=== PATIENT | male | born 1980 | race American Indian/Alaskan Native ===

== ENCOUNTER 2019-08-10 20:37 | Emergency (ER) | payer OTHER ==
[~2019-08-10] VITALS: Ht 177.8 cm; Wt 75.8 kg
[~2019-08-10 20:37] MED LIST: CALCIUM 500 +1 EAC1 PO; CYCLOBENZAPRINE5 MG PO; FISH OIL500 MG PO; IBUPROFEN600 MG PO; LORAZEPAM1 MG PO
[2019-08-10] MEDS ORDERED: REGLAN10 MG PO (23:16)
== END 2019-08-10 23:29 | disposition home or self-care (01) ==
LOC: ED 20:37
DX: K29.00 Acute gastritis without bleeding (principal); Z72.89 Other problems related to lifestyle; R06.6 Hiccough; F17.200 Nicotine dependence, unspecified, uncomplicated
CPT/HCPCS: 80053; 81001; 83690; 83735; 85025; 96361; 96374; 96375; 99284-25; G0480; J1200; J2405; J2765; J7030

== ENCOUNTER 2020-03-29 08:37 | Inpatient (IN) | payer OTHER ==
[~2020-03-29] VITALS: Ht 177.8 cm; Wt 85.3 kg
--- OUTSIDE RECORDS SUMMARY | ~2020-03-29 | XMS | Encounter Summary ---
Demographics + + + | Address | [address] | | | [place] [address] | + + + | Home Phone | | + + + | Preferred Language | Unknown | + + + | Marital Status | Single | + + + | Latter-Day Affiliation | NRP | + + + | Race | White | + + + | Ethnic Group | or | + + + Author + + + | Author | [facility] | + + + | Organization | [facility] | + + + | Address | Unknown | + + + | Phone | Unavailable | + + + Support + + +---------+ + | Name | Relationship | Address | Phone | + + +---------+ + | Montserrat Tavaresr | ECON | Unknown | | + + +---------+ + Care Team Providers + +------+ + | Care Roll Plugger Name | Role | Phone | + +------+ + | No Pcp Per Patient | PCP | Unavailable | + +------+ + Encounter Details +--------+ + + + + | Date | Type | Department | Care Team | Description | +--------+ + + + + | 06/08/ | Procedure | Diagnostic Imaging | | | | 2019 | Pass | Services at [facility] | | | | | | [address] | | | | | | Micaela Willis [facility] | | | | | | [facility], [address] [place] [address] | | | | | | [place], [place] | | | | | | [address] | | | | | | [phone] | | | +--------+ + + + + Social History + +-------+ +--------+------+ | Tobacco Use | Types | Packs/Day | Years | Date | | | | | Used | | + +-------+ +--------+------+ | Never Assessed | | | | | + +-------+ +--------+------+ + + + | Sex Assigned at | Date Recorded | | | | + + + | Not on file | | + + + + + + + | Job Start Date | Occupation | Industry | + + + + | Not on file | Not on file | Not on file | + + + + + + + + | Travel History | Travel Start | Travel End | + + + + + + | No recent travel history available. | + + documented as of this encounter Plan of Treatment Not on filedocumented as of this encounter Visit Diagnoses Not on filedocumented in this encounter"
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
--- OUTSIDE RECORDS SUMMARY | ~2020-03-29 | XMS | Encounter Summary ---
Demographics + + + | Address | [address] | | | [place] [address] | + + + | Home Phone | | + + + | Preferred Language | Unknown | + + + | Marital Status | Single | + + + | Anglican Affiliation | NRP | + + + | Race | White | + + + | Ethnic Group | or | + + + Author + + + | Author | [facility] | + + + | Organization | [facility] | + + + | Address | Unknown | + + + | Phone | Unavailable | + + + Support + + +---------+ + | Name | Relationship | Address | Phone | + + +---------+ + | Montserrat Tavaresr | ECON | Unknown | | + + +---------+ + Care Team Providers + +------+ + | Care Hoop Punch And Coiler Operator Name | Role | Phone | + +------+ + | No Pcp Per Patient | PCP | Unavailable | + +------+ + Encounter Details +--------+--------+ + + + | Date | Type | Department | Care Team | Description | +--------+--------+ + + + | 06/08/ | Intake | Transfer Center | | N/A | | 2019 | | [address] | | | | | | [place], | | | | | | [place] [address] | | | +--------+--------+ + + + Social History + +-------+ [...]
--- OUTSIDE RECORDS SUMMARY | ~2020-03-29 | XMS | Encounter Summary ---
Demographics + + + | Address | [address] | | | [place] [address] | + + + | Home Phone | | + + + | Preferred Language | Unknown | + + + | Marital Status | Single | + + + | Synagogue Affiliation | NRP | + + + | Race | White | + + + | Ethnic Group | or | + + + Author + + + | Organization | Unknown | + + + | Address | Unknown | + + + | Phone | Unavailable | + + + Support + + +---------+ + | Name | Relationship | Address | Phone | + + +---------+ + | Montserrat Reynaga | ECON | Unknown | | + + +---------+ + Care Team Providers + +------+ + | Care Bodywork Therapist Name | Role | Phone | + +------+ + PCP | Unavailable | + +------+ + Encounter Details +--------+--------+ + + + | Date | Type | Department | Care Team | Description | +--------+--------+ + + + | 06/08/ | Travel | | | | | 2019 | | | | | +--------+--------+ + [...]
--- OUTSIDE RECORDS SUMMARY | ~2020-03-29 | XMS | Encounter Summary ---
Demographics + + + | Address | [address] | | | [place] [address] | + + + | Home Phone | | + + + | Preferred Language | Unknown | + + + | Marital Status | Single | + + + | Shinto Affiliation | NRP | + + + | Race | White | + + + | Ethnic Group | or | + + + Author + + + | Author | [facility] | + + + | Organization | [facility] | + + + | Address | Unknown | + + + | Phone | Unavailable | + + + Support + + +---------+ + | Name | Relationship | Address | Phone | + + +---------+ + | Montserrat Tavaresr | ECON | Unknown | | + + +---------+ + Care Team Providers + +------+ + | Care Field Sales Engineer Name | Role | Phone | + +------+ + | No Pcp Per Patient | PCP | Unavailable | + +------+ + Encounter Details +--------+ + + + + | Date | Type | Department | Care Team | Description | +--------+ + + + + | 06/08/ | Procedure | Diagnostic Imaging | | | | 2019 | Pass | Services at [facility] | | | | | | [address] | | | | | | [place] [facility] | | | | | | [facility], [address] [place] [address] | | | | | | [place], [place] | | | | | | [address] | | | | | | [phone] | | | +--------+ + + + [...]
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
--- OUTSIDE RECORDS SUMMARY | ~2020-03-29 | XMS | Encounter Summary ---
Demographics + + + | Address | [address] | | | [place] [address] | + + + | Home Phone | | + + + | Preferred Language | Unknown | + + + | Marital Status | Single | + + + | Temple Affiliation | NRP | + + + | Race | White | + + + | Ethnic Group | or | + + + Author + + + | Author | [facility] | + + + | Organization | [facility] | + + + | Address | Unknown | + + + | Phone | Unavailable | + + + Support + + +---------+ + | Name | Relationship | Address | Phone | + + +---------+ + | Montserrat Tavaresr | ECON | Unknown | | + + +---------+ + Care Team Providers + +------+ + | Care Spray Gun Striper Name | Role | Phone | + +------+ + | No Pcp Per Patient | PCP | Unavailable | + +------+ + Encounter Details +--------+ + + + + | Date | Type | Department | Care Team | Description | +--------+ + + + + | 06/08/ | Procedure | Diagnostic Imaging | | | | 2019 | Pass | Services at [facility] | | | | | | [address] | | | | | | Micaela Willis [facility] | | | | | | [facility], [address] [place] [address] | | | | | | [place], [place] | | | | | | [address] | | | | | | [phone] | | | +--------+ + + + [...]
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
--- OUTSIDE RECORDS SUMMARY | ~2020-03-29 | XMS | Encounter Summary ---
Demographics + + + | Address | [address] | | | [place] [address] | + + + | Home Phone | | + + + | Preferred Language | Unknown | + + + | Marital Status | Single | + + + | Gnosticism Affiliation | NRP | + + + [...] Team Providers + +------+ + | Care Deputy Sheriff Generalist Name | Role | Phone | + [...]
--- OUTSIDE RECORDS SUMMARY | ~2020-03-29 | XMS | Clinical Summary ---
Demographics + + + | Address | [address] | | | [place] [address] | + + + | Home Phone [...] Team Providers + +------+ + | [employer] Solutions Sales Consultant Name | Role | Phone | + +------+ + | No Pcp Per Patient | PCP | Unavailable | + +------+ + Source Comments JAX is fully live on both [facility] Ambulatory and [facility] InPatient.[facility] Allergies No Known Allergies Medications Not on [...] | OHP | xxxxxxxx | 05/05/20 | [phone] | [address] | [address] | | | PLUS | | 19-Pre | 6 | [address] | id | | | OPEN | | sent | | [place], [place] | | | | CARD | | | | [address] | | + +--------+ +--------+ + +--------+ [...] [address] | | | 9 (Home) | [address] | + +--------+ +--------+ + + Advance [...]
--- OUTSIDE RECORDS SUMMARY | ~2020-03-29 | XMS | Encounter Summary ---
Demographics + + + | Address | [address] | | | [place] [address] | + + + | Home Phone | | + + + | Preferred Language | Unknown | + + + | Marital Status | Single | + + + | Episcopalian Affiliation | NRP | + + + | Race | White | + + + | Ethnic Group | or | + + + Author + + + | Author | [facility] | + + + | Organization | [facility] | + + + | Address | Unknown | + + + | Phone | Unavailable | + + + Support + + +---------+ + | Name | Relationship | Address | Phone | + + +---------+ + | Montserrat Tavaresr | ECON | Unknown | | + + +---------+ + Care Team Providers + +------+ + | Care Tube Carrier Name | Role | Phone | + +------+ + | No Pcp Per Patient | PCP | Unavailable | + +------+ + Encounter Details +--------+ + + + + | Date | Type | Department | Care Team | Description | +--------+ + + + + | 06/08/ | Procedure | Diagnostic Imaging | | | | 2019 | Pass | Services at [facility] | | | | | | [address] | | | | | | Micaela Willis [facility] | | | | | | [facility], [address] [place] [address] | | | | | | [place], [place] | | | | | | [address] | | | | | | [phone] | | | +--------+ + + + [...]
--- OUTSIDE RECORDS SUMMARY | ~2020-03-29 | XMS | Encounter Summary ---
Demographics + + + | Address | [address] | | | [place] [address] | + + + | Home Phone | | + + + | Preferred Language | Unknown | + + + | Marital Status | Single | + + + | Latter-Day Affiliation | NRP | + + + | Race | White | + + + | Ethnic Group | or | + + + Author + + + | Author | [facility] | + + + | Organization | [facility] | + + + | Address | Unknown | + + + | Phone | Unavailable | + + + Support + + +---------+ + | Name | Relationship | Address | Phone | + + +---------+ + | Montserrat Tavaresr | ECON | Unknown | | + + +---------+ + Care Team Providers + +------+ + | Care Fruit Thinner Machine Operator Name | Role | Phone | [...] | | | | | Micaela Willis [place], | | | | | | [place] [address] | | | +--------+--------+ + + + [...]
--- OUTSIDE RECORDS SUMMARY | ~2020-03-29 | XMS | Encounter Summary ---
Demographics + + + | Address | [address] | | | [place] [address] | + + + | Home Phone | | + + + | Preferred Language | Unknown | + + + | Marital Status | Single | + + + | Evangelical Affiliation | NRP | + + + | Race | White | + + + | Ethnic Group | or | + + + Author + + + | Author | [facility] | + + + | Organization | [facility] | + + + | Address | Unknown | + + + | Phone | Unavailable | + + + Support + + +---------+ + | Name | Relationship | Address | Phone | + + +---------+ + | Montserrat Tavaresr | ECON | Unknown | | + + +---------+ + Care Team Providers + +------+ + | Care Proof Tester Name | Role | Phone | + [...] | | | | | Micaela Willis [place], | | | | | | [place] [address] | | | +--------+--------+ + + + [...]
--- OUTSIDE RECORDS SUMMARY | ~2020-03-29 | XMS | Clinical Summary ---
Demographics + + + | Address | [address] | | | [place] [address] | + + + | Home Phone | | + + + | Preferred Language | Unknown | + + + | Marital Status | Single | + + + | Anabaptism Affiliation | NRP | + + + [...] Team Providers + +------+ + | Care Treating Machine Operator Name | Role | Phone | + +------+ + | No Pcp Per Patient | PCP | Unavailable | + +------+ + Source Comments JAX is fully live on both [facility] and [facility] InPatient.[facility] Allergies No Known Allergies Medications Not on [...] | OHP | xxxxxxxx | 05/05/20 | [phone] | [address] | [address] | | | PLUS | | 19-Pre | 6 | [phone] | id | | | OPEN | | sent | | [place], [place] | | | | CARD | | | | [phone] | | + +--------+ +--------+ + +--------+ [...] | [address] | | | al/Ttii | | 1981 | [phone] | [place] | | | [place]ale | | | [address] (Home) | [address] | + +--------+ +--------+ + + Advance [...]
--- OUTSIDE RECORDS SUMMARY | ~2020-03-29 | XMS | Encounter Summary ---
Demographics + + + | Address | [address] | | | [place] [address] | + + + | Home Phone | | + + + | Preferred Language | Unknown | + + + | Marital Status | Single | + + + | Cheondoism Affiliation | NRP | + + + | Race | White | + + + | Ethnic Group | or | + + + Author + + + | Author | [facility] | + + + | Organization | [facility] | + + + | Address | Unknown | + + + | Phone | Unavailable | + + + Support + + +---------+ + | Name | Relationship | Address | Phone | + + +---------+ + | Montserrat Tavaresr | ECON | Unknown | | + + +---------+ + Care Team Providers + +------+ + | Care Healthcare Technician Name | Role | Phone | + +------+ + | No Pcp Per Patient | PCP | Unavailable | + +------+ + Encounter Details +--------+ + + + + | Date | Type | Department | Care Team | Description | +--------+ + + + + | 06/08/ | Procedure | Diagnostic Imaging | | | | 2019 | Pass | Services at [facility] | | | | | | [address] | | | | | | Micaela Willis [facility] | | | | | | [facility], [address] [place] [address] | | | | | | [place], [place] | | | | | | [address] | | | | | | [phone] | | | +--------+ + + + [...]
--- OUTSIDE RECORDS SUMMARY | ~2020-03-29 | XMS | Encounter Summary ---
Demographics + + + | Address | [address] | | | [place] [address] | + + + | Home Phone [...] Team Providers + +------+ + | Care Trimming Assembler Name | Role | Phone | + [...]
--- OUTSIDE RECORDS SUMMARY | ~2020-03-29 | XMS | Encounter Summary ---
Demographics + + + | Address | [address] | | | [place] [address] | + + + | Home Phone | | + + + | Preferred Language | Unknown | + + + | Marital Status | Single | + + + | Latter Day Affiliation | NRP | + + + | Race | White | + + + | Ethnic Group | or | + + + Author + + + | Author | [facility] | + + + | Organization | [facility] | + + + | Address | Unknown | + + + | Phone | Unavailable | + + + Support + + +---------+ + | Name | Relationship | Address | Phone | + + +---------+ + | Montserrat Tavaresr | ECON | Unknown | | + + +---------+ + Care Team Providers + +------+ + | Care Technical Marketing Consultant Name | Role | Phone | [...] | 2019 | Pass | Services at [facility] | | | | | | [address] | | | | | | Micaela Willis [facility] | | | | | | [facility], [address] [place] [address] | | | | | | [place], [place] | | | | | | [address] | | | | | | [phone] | | | +--------+ + + + [...]
[~2020-03-29 08:37] MED LIST changes: +REGLAN10 MG PO
[2020-03-29] MEDS ORDERED: CLARITIN10 M2 PO (08:44)
--- NOTE | 2020-03-29 11:59 | NUR ---
PATIENT ADMITTED TO ROOM 127 AROUND 1110 FROM ER FOR ETOH W/D AND SEIZURES. PT ABLE TO STAND AND VOID, AND THEM MOVE ONTO CCU BED. PATIENT CIWA AT 4 AT THIS TIME BUT PATIENT DID HAVE 3 MG IV ATIVAN IN ER. PATIENT'S HEART RATE 100-120s. PATIENT STATES HE DRINKS HALF OF A FIFTH OF ALCOHOL A DAY, HE SPLITS IT WITH HIS MOTHER. PATIENT STATES HIS LAST DRINK WAS YESTERDAY. PT HAS VISIBLE BLOOD ON HIS LIPS AND A GASH IN HIS LEFT SIDE OF TONGUE FROM BITING IT LIKELY DURING HIS SEIZURE. PATIENT DENIES PAST HISTORY OF SEIZURES. PATIENT'S MOTHER CALLS CCU AND TALKS WITH THIS RN AND PROVIDES SOME HISTORY OF LAST COUPLE DAYS. HIS MOTHER STATES HE DID NOT HAVE ANY ALCOHOL YESTERDAY IT WAS A SUNDAY, AND SHE NOTES THAT HE MOSTLY SLEPT ALL DAY. SHE THEN STATES THAT HE STARTED VOMITING THIS AM, AND VOMITED A LOT BEFORE SHE HEARD THE LOUD NOISE AND FOUND HIM ON BATHROOM FLOOR SEIZING. PATIENT ORIENTED TO ROOM AND CALL LIGHT AND ASKED TO USE CALL LIGHT BEFORE GETTING OUT OF BED. PT VERBALIZES UNDERSTANDING BUT WILL STILL BE MONITORED CLOSELY.
--- NOTE | 2020-03-29 12:00 | EKG ---
[facility] [address] [facility] [place] [address] Signed Sinus tachycardia Possible Left atrial enlargement Rightward axis Borderline ECG Confirmed by GREG DSOUZA MD ([id number]) on 03/29/2020 12:00:23 PM Electronically Signed By: GREG DSOUZA MD 03/29/20 1200 PATIENT NAME: LETTY CHILDERS Electrocardiogram DATE OF : 76 PHYSICIAN: GREG DSOUZA MD REPORT #: [id number] REPORT IS CONFIDENTIAL AND NOT TO BE RELEASED WITHOUT AUTHORIZATION
--- NOTE | 2020-03-29 12:11 | NUR ---
IVF STARTED. PATIENT SLEEPING AT THIS TIME. RR 15, UNLABORED. SP02 93% ON ROOM AIR. BED ALARM ON FOR SAFETY.
--- NOTE | 2020-03-29 15:22 | NUR ---
PT AWAKE WATCHING TV IN BED. SCOOTING UP CAUSED BED ALARM TO GO OFF. PT AWARE OF HOW TO GET AHOLD OF NURSE. ICE WATER FOR MOUTH SWAB PROVIDED.
--- NOTE | 2020-03-29 17:30 | NUR ---
PATIENT SITTING UP IN BED EATING A CLEAR LIQUID TRAY AT THIS TIME. HR IN THE 110-130s WITH ACTIVITY OF EATING. CHECKED ON PATIENT AND HE STATES, "I'M JUST TRYING TO EAT, BUT IT'S JUST TAKING IT OUT OF ME." ENCOURAGED PATIENT TO TAKE IT SLOW ON EATING. PT STILL SOMEWHAT VISIBLY TREMULOUS WITH ARMS EXTENDED BUT DENIES FEELING ANXIOUS. PT HAS BEEN APPROPRIATELY USING CALL LIGHT AND HAS NOT SHOWN AGITATION. WILL CONTINUE TO MONITOR. NEXT SCHEDULED DOSE OF ATIVAN AT 1800 AND PATIENT UPDATED ON THIS.
--- NOTE | 2020-03-29 20:00 | NUR ---
PT IS SLEEPING AT THIS TIME. NO NEW CONCERNS NOTED.
--- NOTE | 2020-03-29 21:00 | NUR ---
PT IS AAOX4, CIWA WAS A 6 AT 2030. HR IS STILL ELEVATED IN THE 130'S WHEN PT GETS OUT OF BED, OTERWISE V/S ARE WDL. PT DID HAVE A TEMP OF 99.1 F. URINE OUTPUT SO FAR IS ADEQUATE, ALL LOBES ARE CLEAR, PT DENIES PAIN, NO PERIPHERAL EDEMA NOTED, ABD SOUNDS PRESENT, ABD IS NON-TENDER. SECOND IV SITE PLACED. WILL CONTINUE TO MONITOR.
--- NOTE | 2020-03-29 21:48 | NUR ---
PT AT THIS TIME IS SLEEPING. NO NEW CONCERNS NOTED
--- NOTE | 2020-03-29 22:18 | NUR ---
PT SET OFF BED ALARM. STOOD AT SIDE OF BED TO VOID (500ML) AND THEN RETURNED TO BED. WITH ACTIVITY, HR INCREASED TO 135 AND NOW THAT PT IS BACK IN BED HR 105. DENIES FURTHER REQUESTS, BED ALARM RE-SET FOR SAFETY.
--- NOTE | 2020-03-29 23:22 | NUR ---
PT IS SLEEPING AT THIS TIME, NO NEW CONCERNS NOTED.
--- NOTE | 2020-03-29 23:55 | NUR ---
CIWA AT THIS TIME IS A 1. PT IS AAOX4, SECOND ASSESSMENT WAS OVERALL UNCHANGED FROM THE FIRST. HR NOW <100 WHEN PT IS STILL IN BED. TEMP STILL 99.1 F, OTHER V/S ARE WDL. NO NEW CONCERNS NOTED AT THIS TIME.
--- NOTE | 2020-03-30 01:18 | NUR ---
PT IS BACK TO BED AFTER SCHEDULED ATIVAN ADMINISTRATION. NO NEW CONCERNS NOTED. V/S WDL, PT AAOX4.
--- NOTE | 2020-03-30 03:05 | NUR ---
PT AT THIS TIME IS SLEEPING. PT IS LAYING ON HER SIDE, HENCE BP A BIT LOW. DRIP IS STILL OFF. HR IN THE MID 60'S.
--- NOTE | 2020-03-30 03:07 | NUR ---
ASSISTED PT WITH URINATION A BIT AGO. PT IS BACK IN BED AND SLEEPIN AT THIS TIME. BP IS A BIT ELEVATED. OTHER V/S ARE WDL SO FAR.
--- NOTE | 2020-03-30 04:30 | NUR ---
CIWA AT THIS TIME IS A 1. PT HAS BEEN SLEEPING. LOBES ARE CLEAR, PT IS AAOX4, NO NEW PROBLEMS WERE NOTED WITH THRID ASSESSMENT. WHILE PT IS SLEEPING, HIS HR USUALLY IS <100, WHILE STANDING, HR CAN GO UP TO 140'S. TEMP NOW 99.3 F. OTHER V/S ARE WDL OVERALL. WILL CONTINUE TO MONITOR.
--- NOTE | 2020-03-30 06:13 | NUR ---
SO FAR PT IS DOING WELL WITH SCHEDULED ATIVAN ONLY. HIGHEST CIWA FOR THIS SHIFT WAS A 6. PT HAS HAD A SLIGHT TEMP IN THE 99+ F REGION. BP'S HAVE BEEN ELEVATED THIS SHIFT. HR IS ,100 WHEN PT IS STILL IN BED. WHILE STANDING HR STILL UP TO 140'S. URINE OUTPUT IS ADEQUATE, PT IS AAOX4 AND VERY COOPERATIVE. LOBES ARE CLEAR, ABD SOUNDS PRESENT, NO PERIPHERAL EDEMA NOTED.
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
--- NOTE | 2020-03-30 09:45 | NUR ---
IN PT ROOM, BED ALARM SOUNDING, CASE MANAGEMENT IN ROOM WITH PATIENT. PATIENT STANDING AT BEDSIDE AND APPEARS ANXIOUS. PATIENT STATING, "WHERE ARE MY CLOTHES..." PATIENT PUT HIS SHORTS ON AND STATED THAT HE DID NOT WANT TO BE IN BED ANY LONGER, PATIENT WALKED TO CHAIR AND WAS UNSTEADY ON HIS FEET. THE CONVERSATION WITH CASE MANAGEMENT APPEARS TO HAVE MADE HIM MORE ANXIOUS. PATIENT STATES HE "DOES NOT WANT TO STOP DRINKING BECAUSE HE HAS TOO MUCH GOING ON AT HOME" BUT HE DOES STATE THAT HE NEEDS TO "CUT BACK" MD NOTIFIED OF PATIENT DESIRES TO LEAVE. PATIENT EDUCATED ON NEED TO REDUCE ALCOHOL CONSUMPTION. PATIENT NOW SITTING IN THE CHAIR WITH SHORTS ON. WILL CONTINUE TO MONITOR.
[2020-03-30] MEDS ORDERED: GABAPENTIN300 MG PO (10:18)
--- NOTE | 2020-03-30 10:45 | NUR ---
PT DISCHARGE TEACHING COMPLETE. PT REMOVED HIS OWN IV CATHETERS AFTER BEING TOLD BY TWO RNS THAT IT WOULD BE DONE BY STAFF. PT BLED ONTO FLOOR AND PERSON. PATIENT WAS CLEANED UP AND IV ENTRANCE SITES WERE ASSESSED. BOTH THE RIGHT FOREARM AND LEFT ANTICUBITAL HAD BLOOD AROUND THE SITES. SITES CLEANED AND DRESSED WITH COBAN. CATHETERS VIEWED IN TRASHCAN TO BE INTACT. PATIENT CHANGED INTO CLOTHES BROUGHT BY HIS MOTHER AND WAS GIVEN POTASSIUM PER EMAR. PATIENT WAS TRANSPORTED FROM ROOM TO THE MOTHERS VEHICLE VIA WHEELCHAIR AND ASSISTED INTO THE VEHICLE AND DECLINED ANY FURTHER NEEDS OR QUESTIONS.
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
== END 2020-03-30 10:45 | disposition home or self-care (01) | DRG 897 ==
LOC: ED 08:37 → CCU 10:33
PROVIDERS: ADMIT Internal Medicine
DX: F10.239 Alcohol dependence with withdrawal, unspecified (principal); E87.2 Acidosis; F10.231 Alcohol dependence with withdrawal delirium; R56.9 Unspecified convulsions; F17.210 Nicotine dependence, cigarettes, uncomplicated; E83.42 Hypomagnesemia; E87.6 Hypokalemia; K70.10 Alcoholic hepatitis without ascites; Z79.899 Other long term (current) drug therapy; Z20.828 Contact with and (suspected) exposure to other viral communicable diseases
CPT/HCPCS: 36415; 71045; 80048; 80053; 81001; 83690; 83735; 85025; 85610; 93005; 93010; 96361; 96365; 96375; 96376; 99285-25; C9113; G0480; J1650; J2060; J3411; J3475; J7030; J7121; U0002

== ENCOUNTER 2023-12-14 06:15 | Day surgery (SDC) | payer OTHER ==
[2023-12-11 15:24] VITALS: BP 132/92
[~2023-12-14] VITALS: Ht 177.8 cm; Wt 82.3 kg
[~2023-12-14 06:15] MED LIST changes: +ADVIL200 M1 PO; +ATIVAN2 MG PO; +CLARITIN10 M2 PO; +CYCLOBENZAPRINE10 MG PO; +GABAPENTIN300 MG PO; +LACTATED RINGER'S 1,000 ML IV SCH
[2023-12-14 06:30] VITALS: BP 117/78
[2023-12-14] MEDS ORDERED: IBLOOD GLUCOSE TEST STRIP 1 EA TEST VI PRN ×2 (07:00→10:00)
[2023-12-14] MEDS ORDERED: LIDOCAINE HCL 1% 5 ML SDV INJ ONE (07:00)
[2023-12-14] MEDS ORDERED: CEFAZOLIN SODIUM 2 GM/20 ML SYR IV SCH (07:00)
[2023-12-14] MEDS ORDERED: HEParin SOD (PORCINE) 5,000 UNIT/0.5 ML SYR SUB-Q SCH (07:00)
[2023-12-14] MEDS ORDERED: fentaNYL citrate 100 MCG/2 ML VIAL ONE (07:34)
[2023-12-14] MEDS ORDERED: MIDAZOLAM HCL 2 MG/2 ML VIAL ONE (07:34)
[2023-12-14] MEDS ORDERED: KETOROLAC TROMETHAMINE 30 MG/ML VIAL ONE (07:34)
[2023-12-14] MEDS ORDERED: LACTATED RINGER'S 1,000 ML IV ONE (07:34)
[2023-12-14] MEDS ORDERED: FAMOTIDINE 20 MG/ 2 ML VIAL ONE (07:34)
[2023-12-14] MEDS ORDERED: ondansetron HCL 4 MG/2 ML VIAL ONE (07:34)
[2023-12-14] MEDS ORDERED: DEXAMETHASONE SOD PHOS 4 MG/ML VIAL ONE (07:34)
[2023-12-14] MEDS ORDERED: SUGAMMADEX SODIUM 200 MG/2 ML ML ONE (07:34)
[2023-12-14] MEDS ORDERED: ROCURONIUM BROMIDE 50 MG/5 ML SYR ONE ×2 (07:34→09:59)
[2023-12-14] MEDS ORDERED: propofoL 200 MG/20 ML VIAL ONE (07:34)
[2023-12-14] MEDS ORDERED: LIDOCAINE HCL 4% 5 ML AMP ONE (07:34)
[2023-12-14] MEDS ORDERED: METOCLOPRAMIDE HCL 10 MG/2 ML SDV ONE (07:34)
[2023-12-14] MEDS ORDERED: SUCCINYLCHOLINE IN 0.9% NACL 200 MG/10 ML SYRINGE ONE (07:34)
[2023-12-14] MEDS ORDERED: iopamidoL 30 ML VIAL ONE (08:05)
[2023-12-14] MEDS ORDERED: SODIUM CHLORIDE 0.9% 40 ML IV ONE (08:06)
[2023-12-14] MEDS ORDERED: BUPIVACAINE HCL 0.25% 50 ML MDV ONE (08:10)
[2023-12-14] MEDS ORDERED: LIDOCAINE 1% W/ EPI 1:200,000 30 ML SDV ONE (08:11)
--- NOTE | 2023-12-14 08:47 | NUR ---
HEPARIN GIVEN TO ROSA SANTOYO TO GIVE IN OR.
[2023-12-14] MEDS ORDERED: ATROPINE SULFATE 1 MG/ML VIAL ONE (09:07)
[2023-12-14] MEDS ORDERED: dexmedeTOMIDine HCl 200 MCG/2 ML VIAL ONE (09:07)
[2023-12-14] MEDS ORDERED: ePHEDrine sulfate 50 MG/ML AMP ONE (09:42)
[2023-12-14] MEDS ORDERED: METOPROLOL TARTRATE 5 MG/5 ML VIAL ONE (09:56)
[2023-12-14] MEDS ORDERED: fentaNYL citrate 100 MCG/2 ML VIAL IV PRN (10:00)
[2023-12-14] MEDS ORDERED: NALOXONE HCL 0.4 MG SYR IV PRN (10:00)
[2023-12-14] MEDS ORDERED: ondansetron HCL 4 MG/2 ML VIAL IV PRN ×2 (10:00→10:30)
[2023-12-14] MEDS ORDERED: METOCLOPRAMIDE HCL 10 MG/2 ML SDV IV PRN (10:00)
[2023-12-14] MEDS ORDERED: MORPHINE SULFATE 10 MG/ML VIAL IV PRN (10:00)
[2023-12-14] MEDS ORDERED: PROCHLORPERAZINE EDISYLATE 10 MG/2 ML VIAL IV PRN ×2 (10:00→10:30)
[2023-12-14] MEDS ORDERED: droPERidol 5 MG/2 ML VIAL IV PRN (10:00)
[2023-12-14] MEDS ORDERED: ESMOLOL HCL 100 MG/10 ML VIAL IV ONE (10:29)
[2023-12-14] MEDS ORDERED: hydrALAZINE HCL 20 MG/ML VIAL ONE (10:29)
[2023-12-14] MEDS ORDERED: HYDROCODONE/ACETA 5/325 TAB PO PRN (10:30)
[2023-12-14] MEDS ORDERED: HYDROmorphone HCL 1 MG/ML SYR IV PRN (10:30)
--- NOTE | 2023-12-14 10:35 | NUR ---
12/14/23 1035 Alice Bearden 1025 PT TO PACU SLEEPING. ROSA SANTOYO GAVE MEDS FOR HIGH BP. PT SLEEPING WITH ORAL AIRWAY IN PLACE O2 VIA MASK. FOGGING NOTED IN MASK.
[2023-12-14] MEDS ORDERED: ACETAMINOPHEN 1,000 MG/100 ML VIAL ONE (10:49)
[2023-12-14 11:36] VITALS: BP 114/69
--- NOTE | 2023-12-14 11:45 | NUR ---
1130-PATIENT ARRIVES BACK TO ROOM FROM PACU ON RA. PATIENT IS DROWSY. RESP EVEN AND UNLABORED. RATES PAIN 2/10. DENIES NAUSEA. PATIENT IS EATING APPLESAUCE AND DRINKING WATER. MOM AT BEDSIDE. CALL LIGHT WITHIN REACH.
[2023-12-14 12:35] VITALS: BP 115/72
--- NOTE | 2023-12-14 13:41 | NUR ---
1235-PATIENT IS LAYING IN BED AWAKE. RESP EVEN AND UNLABORED. RATES PAIN AT A 4/10. WOULD LIKE SOMETHING FOR PAIN. DENIES NAUSEA. NO CHANGE TO DRAINAGE ON DRESSINGS. PATIENT READY TO GO HOME. WILL GET DRESSED. CALL LIGHT WITHIN REACH.
--- NOTE | 2023-12-14 13:42 | NUR ---
NAHEED 1245-WENT OF DISCHARGE INSTRUCTION WITH PATIENT. ALL QUESTIONS ANSWERED. PATIENT STATES PAIN IS BETTER. PROVIDED PATIENT WITH A TAXI TICKET TO GET HOME. PATIENT TAKEN TO FRONT OF HOSPITAL WHERE TAXI WAS WAITING FOR PATIENT AND MOM.
--- NOTE | 2023-12-14 13:47 | NUR ---
NAHEED 1344-PHONE CALL TO PATIENT EXPLAINING RX WILL BE DROPPED OFF AT [facility] AND WILL NEED TO BE PICKED UP BY 1700 TODAY.
--- NOTE | 2023-12-17 05:54 | OR ---
[facility] [address] [place], [place] [address] Signed DATE OF OPERATION: 12/14/2023 SURGEON: Rafael Braden MD PREOPERATIVE DIAGNOSIS: Chronic cholecystitis with cholelithiasis. POSTOPERATIVE DIAGNOSES: 1. Chronic cholecystitis with cholelithiasis. 2. Cirrhosis of the liver. PROCEDURE: Laparoscopic cholecystectomy with intraoperative cholangiogram. ESTIMATED BLOOD LOSS: None. FINDINGS: Herminio indeed had a 4 mm stone, where the neck of the gallbladder joins the cystic duct. He also had a couple of smaller 3 mm stones up in the gallbladder. He also had some cholesterolosis. The intraoperative cholangiogram was unremarkable. He clearly has cirrhosis of the liver with nodularity throughout. His liver is relatively soft at this point. INDICATIONS: Herminio is a 43-year-old gentleman asked to see me with respect to his gallbladder. He has had two episodes of very significant right upper quadrant abdominal pain after eating. He said he has had other attacks but much less. He had been to his primary care provider. The ultrasound in October 2023 showed what apparently was a 9 mm stone in the neck of the gallbladder, that was not found today. The stone was about 4 mm. There was some question whether or not he had a 5.7 mm gallbladder polyp. We did not find a gallbladder polyp. His gallbladder wall was not thickened. There was no pericholecystic fluid. His common bile duct was 4.8 mm. He seems to have some fatty liver, but no mention of any cirrhosis. He told me he used to drink very heavy, but is now down to 7-8 shots of [place] blended whiskey after work. He said he smokes about a pack of cigarettes each week. We can see that he is not anemic with hemoglobin of 15 and a mean cell volume is good at 88. His platelets are good at 209. His creatinine is good at 0.84. Albumin is good at 4.7, total bilirubin good at 0.5, AST slightly up at 54, AST good at 38, his alkaline phosphatase is 94. We do not have an INR. In the office, I had given him a pamphlet on the gallbladder. We looked at that carefully page Electronically Signed By: RAFAEL BRADEN MD 12/17/23 0554 PATIENT NAME: HERMINIO CHILDERS OPERATIVE REPORT DATE OF : 76 REPORT #: [id number] PHYSICIAN: RAFAEL BRADEN MD PCP: [facility] REPORT IS CONFIDENTIAL AND NOT TO BE RELEASED WITHOUT AUTHORIZATION [facility] [address] [place] [id number] Signed by page. He understands the location and function of the gallbladder. We discussed laparoscopic versus open cholecystectomy. There is risk including, but not limited to bleeding, infection, scarring, change in contour of the skin, damage to bowel, damage to main bile duct, incisional hernias, and other unforeseen comorbidities. He understands expected intraop and postop course. He had expressed understanding and wished to proceed. DESCRIPTION OF PROCEDURE: Herminio and his significant other in our preop area. After this, he was taken to the operating room and placed in the supine position. He was placed under general endotracheal tube anesthesia. He was prepped and draped in the usual sterile fashion. He was given preoperative antibiotics along with subcutaneous heparin. SCDs were utilized. Our trocars were then placed in the usual positions. We could see immediately after we brought the omentum off his liver that he has cirrhosis of the liver. The gallbladder was grasped and elevated in the right upper quadrant. His gallbladder was little stiff, but much softer than many cirrhotic livers. We dissected out the triangle of Calot bluntly and very carefully. The intraoperative cholangiocatheter was inserted into the cystic duct. He had one 4 mm stone where the neck of the gallbladder joins the cystic duct, that was removed with our [place] dissector. The intraoperative cholangiogram was found to be unremarkable. No additional stones in the cystic duct or common bile duct. The contrast flowed readily into the duodenum. After this, the cystic duct stump was secured with PDS Endoloop and clip had been placed across the cystic duct stump to jennie its location. We placed several clips along the cystic artery as we went up towards the gallbladder. We very carefully and slowly removed the gallbladder from the gallbladder fossa with the help of the cautery. The gallbladder was then placed into an EndoCatch bag. We taken pictures throughout for photodocumentation. Our circulating nurse opened the gallbladder on the back table. He has diffuse cholesterolosis. He had two additional tiny 3 mm yellow cholesterol stones. We did not see any evidence for gallbladder polyp. After this, we used our laparoscopic suturing device to pass 0-Vicryl suture on either side of the fascia of the subxiphoid trocar site. This was tied down to close this fascia primarily. After this, all the gas was allowed to escape and all the trocars were removed. We closed the fascia of the supraumbilical trocar site with interrupted simple [id number] 0-Vicryl sutures. Local anesthetic was injected into all trocar sites. Each trocar site was irrigated and suctioned out until clear. The skin and dermis of each trocar site were closed with interrupted 3-0 subcuticular Monocryl sutures. Dry gauze and tape were applied to all incisions. After this, Herminio was awakened from his anesthesia, extubated in the OR, and taken to the recovery room in stable condition. Electronically Signed By: RAFAEL BRADEN MD 12/17/23 0554 PATIENT NAME: HERMINIO CHILDERS OPERATIVE REPORT DATE OF : 76 REPORT #: [id number] PHYSICIAN: RAFAEL BRADEN MD PCP: [facility] REPORT IS CONFIDENTIAL AND NOT TO BE RELEASED WITHOUT AUTHORIZATION [address] [address] Signed Rafael Braden MD [facility] /[id number] cc: Rafael Braden MD Patient Chart [facility] Copies: RAFAEL BRADEN MD [facility] ~ Electronically Signed By: RAFAEL BRADEN MD 12/17/23 0554 PATIENT NAME: HERMINIO CHILDERS OPERATIVE REPORT DATE OF : 76 REPORT #: [id number] PHYSICIAN: RAFAEL BRADEN MD PCP: [facility] REPORT IS CONFIDENTIAL AND NOT TO BE RELEASED WITHOUT AUTHORIZATION
--- NOTE | 2023-12-18 12:22 | PATH ---
[facility] [address] [facility] [place], [place] [address] Signed SPECIMEN(S): A GALLBLADDER WITH STONE SPECIMEN SOURCE: A. GALLBLADDER WITH STONE CLINICAL HISTORY: Chronic calculus cholecystitis FINAL PATHOLOGIC DIAGNOSIS: Gallbladder, cholecystectomy: - Chronic cholecystitis BRP MICROSCOPIC EXAMINATION: Histologic sections of all submitted blocks are examined by light microscopy. These findings, together with the gross examination, support the pathologic diagnosis. GROSS DESCRIPTION: The specimen, labeled and designated "juma Mancilla," is received in formalin and consists of Specimen: Previously opened gallbladder. Dimensions: 8.5 x 4.5 cm. Serosa: Violaceous, smooth. Cystic Duct: Inked, unobstructed. Calculi: Gallstones are not grossly identified within the container or within the gallbladder. Mucosa: Yucca-macdonald and velvety. Wall thickness: 0.6 cm. Lymph node: No pericystic lymph nodes are grossly identified. Additional: None. Nurses Superintendent sections are submitted in (A1). JS (under the direct supervision of a pathologist) The Gross Description was prepared using a voice recognition system. The report was reviewed for accuracy; however, sound-alike word errors, addition and/or deletions may occur. If there is any question about this report, please contact Client Services. ADDITIONAL NOTES: Immunohistochemical and/or in situ hybridization studies if performed in this case included appropriate positive controls that reacted as expected. This PATIENT NAME: LETTY MANCILLA PATHOLOGY DATE OF : 76 REPORT #: [id number] PHYSICIAN: [facility] PCP: [facility] REPORT IS CONFIDENTIAL AND NOT TO BE RELEASED WITHOUT AUTHORIZATION [facility] [address] [place], [place] [address] Signed test was developed and its performance characteristics determined by [facility]. It has not been cleared or approved by the U.S. Food and Drug Administration. The FDA has determined that such clearance or approval is not necessary. This test is used for clinical purposes. It should not be regarded as investigational or for research. [facility] is certified under the Clinical Laboratory Improvement Amendments of 1988 (CLIA) as qualified to perform high complexity clinical laboratory testing. PERFORMING LABORATORY: Technical component was performed by [facility], [address] [place] [address] (CLIA# [id number]). Professional interpretation was performed by [facility] [address] [place] [id number] Diagnostician: Toro Lopez MD Pathologist Electronically Signed 12/18/2023 Copies: ~ PATIENT NAME: LETTY MANCILLA PATHOLOGY DATE OF : 76 REPORT #: [id number] PHYSICIAN: [facility] PCP: [facility] REPORT IS CONFIDENTIAL AND NOT TO BE RELEASED WITHOUT AUTHORIZATION
== END 2023-12-14 12:45 | disposition home or self-care (01) ==
LOC: DS 06:15
PROVIDERS: ATTEND Colon & Rectal Surgery
PROC: 0FT44ZZ Resection of Gallbladder, Percutaneous Endoscopic Approach (ICD-10-PCS; principal; 2023-12-14 08:15)
DX: K80.10 Calculus of gallbladder with chronic cholecystitis without obstruction (principal); K74.60 Unspecified cirrhosis of liver; F10.99 Alcohol use, unspecified with unspecified alcohol-induced disorder
CPT/HCPCS: 74300; J0131; J0330; J0360; J0461; J0690; J1100; J1644; J1885; J2250; J2405; J2704; J2765; J3010; J3490; J7121; Q9967

== ENCOUNTER 2024-03-07 14:28 | Emergency (ER) | payer OTHER ==
[~2024-03-07] VITALS: Ht 177.8 cm; Wt 83.0 kg
[~2024-03-07 14:28] MED LIST changes: -LACTATED RINGER'S 1,000 ML IV SCH
[2024-03-07 15:52] VITALS: BP 131/105
== END 2024-03-07 15:52 | disposition home or self-care (01) ==
LOC: ED 14:28
DX: S06.0X0A Concussion without loss of consciousness, initial encounter (principal); W22.03XA Walked into furniture, initial encounter; F17.200 Nicotine dependence, unspecified, uncomplicated
CPT/HCPCS: 99283